=== PATIENT | male | born 1985 | race Two or more races ===

== ENCOUNTER 2021-01-26 20:32 | Emergency (ER) | payer OTHER ==
[2021-01-26 20:38] VITALS: BP 144/88; PULSE 98; TEMP 97; BMI 34.9
[2021-01-26] MEDS ORDERED: KETOROLAC TROMETHAMINE 30 MG/1 ML VIAL IM ONE (21:34)
[2021-01-26] MEDS ORDERED: ACETAMINOPHEN 500 MG TABLET (FP) PO ONE (21:35)
[2021-01-26] MEDS ORDERED: LIDOCAINE 5% TOPICAL PATCH TP ONE (21:35)
[2021-01-26] MEDS ORDERED: ACETAMINOPHEN 325 MG TABLET (FP) ONE (21:38)
[2021-01-26] MEDS ORDERED: LIDOCAINE 5% TOPICAL PATCH ONE (21:39)
[2021-01-26] MEDS ORDERED: KETOROLAC TROMETHAMINE 15 MG/ML VIAL ONE (21:39)
[2021-01-26] MEDS ORDERED: KETOROLAC TROMETHAMINE 30 MG/1 ML VIAL ONE (21:42)
[2021-01-27] MEDS ORDERED: METHOCARBAMOL 500 MG TABLET PO ONE (00:28)
[2021-01-27] MEDS ORDERED: METHOCARBAMOL 500 MG TABLET ONE (00:34)
== END 2021-01-27 00:38 | disposition home or self-care (01) ==
LOC: JER 20:32
PROC: 3E0233Z Introduction of Anti-inflammatory into Muscle, Percutaneous Approach (ICD-10-PCS; principal; 2021-01-26)
DX: M54.5 Low back pain (principal); M54.2 Cervicalgia; V43.52XA Car driver injured in collision with other type car in traffic accident, initial encounter
CPT/HCPCS: 71045-TC-FY; 72125-TC; 72128-TC; 72131-TC; 72170-TC-FY; 99285-25